=== PATIENT | female | born 1955 | race Caucasian/White ===

== ENCOUNTER 2016-11-02 06:19 | Emergency (ER) | payer BC ==
[~2016-11-02] VITALS: Ht 165.1 cm; Wt 99.8 kg
[2016-11-02 06:20] VITALS: BP 133/81; PULSE 68; RESP 18; TEMP 98.3; O2SAT 98
[2016-11-02] MEDS ORDERED: ONDANSETRON 4 MG ODT TAB PO ONE (07:00)
[2016-11-02] MEDS ORDERED: MORPHINE 4 MG/ML INJ. SYRINGE IM ONE ×2 (07:00→07:45)
[2016-11-02 08:20] VITALS: BP 135/60; PULSE 72; RESP 20; TEMP 98.2; O2SAT 100
== END 2016-11-02 08:20 | disposition home or self-care (01) ==
LOC: SED 06:19
DX: S52.501A Unspecified fracture of the lower end of right radius, initial encounter for closed fracture (principal); S52.601A Unspecified fracture of lower end of right ulna, initial encounter for closed fracture; S00.31XA Abrasion of nose, initial encounter; Z88.8 Allergy status to other drugs, medicaments and biological substances; W19.XXXA Unspecified fall, initial encounter; Y93.89 Activity, other specified; Y92.89 Other specified places as the place of occurrence of the external cause; Y99.8 Other external cause status
CPT/HCPCS: 29125; 73110; 96372; 99284; J2270; Q0162